=== PATIENT | male | born 1970 | race Caucasian/White ===

== ENCOUNTER 2019-04-19 20:12 | Emergency (ER) | payer MEDICAID ==
[~2019-04-19] VITALS: Ht 170.2 cm; Wt 95.3 kg
[~2019-04-19 20:12] MED LIST: OMEP20EC9 PO; [UNRECOGNIZED DRUG - CODE] PO
[2019-04-19 20:21] VITALS: BP 135/82
--- NOTE | 2019-04-19 20:22 | NUR ---
VISUAL ACUITY TEST, PT L EYE 20/25, PT R EYE 20/25
--- NOTE | 2019-04-19 20:23 | NUR ---
PT AMBULATED TO BED 11.
--- NOTE | 2019-04-19 20:36 | NUR ---
PATIENT PRESENTS TO ED WITH C/O L EYE PAIN X 4 DAYS. PATIENT DENIES ANY DISCHARGE, BUT DOES STATE +BLURRY VISION . PT DENIES N/V/D; SKIN IS PINK/WARM/DRY; AAOX4 WITH EVEN AND STEADY GAIT; LUNGS CLEAR BL; HR EVEN AND REGULAR; PT DENIES ANY FEVER, CP, SOB, OR COUGH AT THIS TIME; PATIENT STATES PAIN OF 7/10 AT THIS TIME; VSS; PATIENT POSITIONED FOR COMFORT; HOB ELEVATED; BEDRAILS UP X2; BED DOWN. ER MD MADE AWARE OF PT STATUS.
--- NOTE | 2019-04-19 20:43 | NUR ---
[facility] BEDSIDE EVALUATING PT
[2019-04-19] MEDS ORDERED: TETRACAINE HCL/PF 0.5% OPTH 4 ML BTL OP ONE (20:50)
--- NOTE | 2019-04-19 21:20 | NUR ---
Patient discharged with v/s stable. Written and verbal after care instructions given and explained. Patient alert, oriented and verbalized understanding of instructions. Ambulatory with steady gait. All questions addressed prior to discharge. ID band removed. Patient advised to follow up with PMD. Rx of PREDNISONE, LARATADINE, PANTANOL given. Patient educated on indication of medication including possible reaction and side effects. Opportunity to ask questions provided and answered.
[2019-04-19 21:21] VITALS: BP 142/78
== END 2019-04-19 21:20 | disposition home or self-care (01) ==
LOC: MED 20:12
DX: H10.13 Acute atopic conjunctivitis, bilateral (principal); J30.2 Other seasonal allergic rhinitis; I10 Essential (primary) hypertension; Z79.899 Other long term (current) drug therapy
CPT/HCPCS: 99283

== ENCOUNTER 2021-03-26 12:40 | Emergency (ER) | payer MEDICAID ==
[~2021-03-26] VITALS: Ht 170.2 cm; Wt 90.4 kg
[~2021-03-26 12:40] MED LIST changes: +[UNRECOGNIZED DRUG - CODE] PO; -[UNRECOGNIZED DRUG - CODE] PO
[2021-03-26 12:42] VITALS: BP 137/78
--- NOTE | 2021-03-26 12:52 | NUR ---
PATIENT AMBULATED TO BED 2.
--- NOTE | 2021-03-26 12:58 | NUR ---
51 Y/O M BIB [facility] FROM HOME, PT PRESENTS TO ED WITH ABD PAIN IN BOTH LOWER QUADRANTS, 07/01. PT DENIES CONSTIPATION, URINARY BURNING OR PAIN AND N/V/D. PT ALSO DENIES FEVER, COUGH, SOB, AND CHEST PAIN. A&OX4 WITH EVEN STEADY GAIT. LUNG BASES CLEAR BILATERALLY, HEART SOUNDS EVEN AND STEADY. PMH: HTN MED: HYDROCHLOROTHIAZIDE, LISINOPRIL NKA
[2021-03-26] MEDS ORDERED: ONDANSETRON 4 MG/2 ML VIAL IVP ONE (13:05)
[2021-03-26] MEDS ORDERED: MORPHINE SULFATE 4 MG/ML SYR IVP ONE (13:05)
[2021-03-26] MEDS ORDERED: NACL 0.9% 1,000 ML IV ONE (13:05)
--- NOTE | 2021-03-26 13:15 | NUR ---
CALLED CT TO COME SUBWAY TRAIN OPERATOR PT. CT NOW AT BEDSIDE.
[2021-03-26 13:34] LABS: BASOPHILS % (AUTO) 0.3 % (0.0-2.0); HEMATOCRIT 43.4 % (36-52); HEMOGLOBIN 14.9 g/dL (12.0-18.0); LYMPHOCYTES # (AUTO) 1.3 K/uL (2.0-11.5); LYMPHOCYTES % (AUTO) 7.8 % (20.5-51.1); MEAN CORPUSCULAR HEMOGLOBIN 33 pg (27-31); MEAN CORPUSCULAR HGB CONC 34 g/dL (33-37); MEAN CORPUSCULAR VOLUME 94.9 fL (80-94); MONOCYTES # (AUTO) 0.9 K/uL (0.8-1.0); MONOCYTES % (AUTO) 5.6 % (1.7-9.3); NEUTROPHILS % (AUTO) 86.3 % (42.2-75.2); PLATELET COUNT (AUTO) 203 K/uL (140-450); RED BLOOD CELL COUNT(AUTO) 4.57 MIL/uL (4.20-6.10); WHITE BLOOD COUNT (AUTO) 16.3 K/uL (4.8-10.8)
[2021-03-26 13:35] LABS: APPEARANCE,URINE CLEAR (CLEAR); BILIRUBIN,URINE NEGATIVE (NEGATIVE); BLOOD, URINE NEGATIVE (NEGATIVE); COLOR,URINE YELLOW (YELLOW); LEUKOCYTE ESTERASE ,URINE NEGATIVE (NEGATIVE); NITRITE, URINE NEGATIVE (NEGATIVE); UGLUCOSE NEGATIVE (NEGATIVE)
[2021-03-26 13:57] LABS: RBC,URINE 0-5 /HPF (0-5); WBC,URINE 0-5 /HPF (0-5)
[2021-03-26] MEDS ORDERED: ACET-8386 PO (14:07)
[2021-03-26] MEDS ORDERED: METR500T1 PO (14:07)
[2021-03-26] MEDS ORDERED: CIPR500T4 PO (14:07)
[2021-03-26 14:11] LABS: ALBUMIN 4.3 g/dL (3.4-5.0); ANION GAP 12.8 (8-16); CARBON DIOXIDE 26.8 mmol/L (21-32); CREATININE 1.1 mg/dL (0.6-1.3); POTASSIUM 3.6 mmol/L (3.5-5.1)
[2021-03-26 14:39] VITALS: BP 137/78
--- NOTE | 2021-03-26 14:39 | NUR ---
Patient discharged with v/s stable. Written and verbal after care instructions given and explained. Patient alert, oriented and verbalized understanding of instructions. Ambulatory with steady gait. All questions addressed prior to discharge. ID band removed. Patient advised to follow up with PMD. Rx of norco 5mg-325mg PO q4-6h prn, cipro 500mg po bid, and flagyl 500mg po tid given. Patient educated on indication of medication including possible reaction and side effects. Opportunity to ask questions provided and answered.
== END 2021-03-26 14:37 | disposition home or self-care (01) ==
LOC: MED 12:40
DX: K57.92 Diverticulitis of intestine, part unspecified, without perforation or abscess without bleeding (principal); I10 Essential (primary) hypertension; Z79.899 Other long term (current) drug therapy
CPT/HCPCS: 36415; 74176; 80053; 81001; 83690; 85025; 96361; 96374; 96375; 99284; J2270; J2405; J7030

== ENCOUNTER 2022-03-12 08:38 | Emergency (ER) | payer MEDICAID ==
[~2022-03-12] VITALS: Ht 170.2 cm; Wt 93.0 kg
[~2022-03-12 08:38] MED LIST changes: +ACET-8386 PO; +CIPR500T4 PO; +METR500T1 PO
[2022-03-12 08:59] VITALS: BP 134/75
--- NOTE | 2022-03-12 09:33 | NUR ---
51/M BIB SELF WITH C/O PAINFUL AND BURRNING URINATION X4 DAYS 05/31, DENIES FEVERS, CHILL, N/V/D. NKA PMH: HTN
[2022-03-12] MEDS ORDERED: IBUP-2213 PO (10:25)
[2022-03-12] MEDS ORDERED: CIPR500T4 PO (10:25)
--- NOTE | 2022-03-12 10:32 | NUR ---
Patient discharged with v/s stable. Written and verbal after care instructions given and explained. Patient alert, oriented and verbalized understanding of instructions. Ambulatory with steady gait. All questions addressed prior to discharge. ID band removed. Patient advised to follow up with PMD. Rx of CIPROFLOXACIN HCI, IBUPROFEN given. Opportunity to ask questions provided and answered.
--- NOTE | 2022-03-12 10:33 | NUR ---
Chart checked and completed. The patient's care was reviewed and supervised by Antoinette Mariano RN.
== END 2022-03-12 10:31 | disposition home or self-care (01) ==
LOC: MED 08:38
DX: N48.89 Other specified disorders of penis (principal); R30.0 Dysuria; I10 Essential (primary) hypertension; Z79.899 Other long term (current) drug therapy
CPT/HCPCS: 81002; 99283

== ENCOUNTER 2022-06-15 18:31 | Inpatient (IN) | payer MEDICAID ==
[~2022-06-15] VITALS: Ht 170.2 cm; Wt 90.3 kg
[~2022-06-15 18:31] MED LIST changes: +IBUP-2213 PO
[2022-06-15 18:50] VITALS: BP 118/81
--- NOTE | 2022-06-15 19:23 | NUR ---
Pt report given to Ekaterina ASIF. Transfer of care at this time.
--- NOTE | 2022-06-15 19:30 | NUR ---
52/M C/O LOWER ABD PAIN AND DIFFICULTY URINATING X3 DAYS, DENIES N/V/D. PMH: HTN NKA
[2022-06-15 19:38] LABS: BASOPHILS % (AUTO) 0.2 % (0.0-2.0); EOSINOPHILS % (AUTO) 0.1 % (0.0-4.0); HEMATOCRIT 41.9 % (36-52); HEMOGLOBIN 14.3 g/dL (12.0-18.0); LYMPHOCYTES # (AUTO) 1.6 K/uL (2.0-11.5); LYMPHOCYTES % (AUTO) 15.1 % (20.5-51.1); MEAN CORPUSCULAR HEMOGLOBIN 32 pg (27-31); MEAN CORPUSCULAR HGB CONC 34 g/dL (33-37); MEAN CORPUSCULAR VOLUME 92.1 fL (80-94); MONOCYTES # (AUTO) 1.1 K/uL (0.8-1.0); NEUTROPHILS # (AUTO) 7.6 K/uL (1.8-7.7); NEUTROPHILS % (AUTO) 73.6 % (42.2-75.2); PLATELET COUNT (AUTO) 194 K/uL (140-450); RED BLOOD CELL COUNT(AUTO) 4.55 MIL/uL (4.20-6.10); RED CELL DISTRIBUTION WIDTH 13.9 % (11.6-13.7); WHITE BLOOD COUNT (AUTO) 10.3 K/uL (4.8-10.8)
[2022-06-15 19:50] LABS: ALBUMIN 3.3 g/dL (3.4-5.0); ANION GAP 16.3 (8-16); CARBON DIOXIDE 23.7 mmol/L (21-32); CREATININE 1.2 mg/dL (0.6-1.3); TOTAL BILIRUBIN 0.6 mg/dL (0.0-1.0)
--- NOTE | 2022-06-15 22:25 | NUR ---
TO CT VIA [facility]
--- NOTE | 2022-06-15 22:35 | NUR ---
RETURNED FROM CT
[2022-06-15] MEDS ORDERED: NACL 0.9% 1,000 ML IV ONE (22:55)
[2022-06-15 23:11] LABS: APPEARANCE,URINE CLEAR (CLEAR); BILIRUBIN,URINE 1+ (NEGATIVE); BLOOD, URINE 3+ (NEGATIVE); COLOR,URINE BROWN (YELLOW); LEUKOCYTE ESTERASE ,URINE NEGATIVE (NEGATIVE); NITRITE, URINE POSITIVE (NEGATIVE); PH,URINE 6.5 (5.0-9.0); UGLUCOSE TRACE (NEGATIVE)
[2022-06-15 23:26] LABS: RBC,URINE TOO NUMEROUS TO COUN /HPF (0-5)
[2022-06-15 23:27] LABS: WBC,URINE 0-5 /HPF (0-5)
[2022-06-15] MEDS ORDERED: MORPHINE SULFATE 4 MG/ML SYR IVP ONE (23:45)
[2022-06-15] MEDS ORDERED: PIPERACILLIN/TAZOBACTAM 4.5 GM in DEXTROSE 5% 100 ML IV ONE (23:45)
[2022-06-15] MEDS ORDERED: VANCOMYCIN 1,000 MG in DEXTROSE 5% 250 ML IV ONE (23:45)
[2022-06-15] MEDS ORDERED: VANCOMYCIN 1,000 MG VIAL ONE (23:59)
[2022-06-16] MEDS ORDERED: PIPERACILLIN/TAZOBACTAM 4.5 GM VIAL IV ONE
[2022-06-16] MEDS ORDERED: KETOROLAC 15 MG/ML VIAL IVP SCH ×2 (01:20→13:00)
[2022-06-16] MEDS ORDERED: MORPHINE SULFATE 4 MG/ML SYR IVP PRN (01:20)
--- NOTE | 2022-06-16 02:00 | NUR ---
RESTING COMFORTABLY. DAVIE SWAB OBTAINED AND SENT TO LAB
[2022-06-16] MEDS: DEXT 5% /NACL 0.9% 1,000 ML IV SCH ×3 (02:58→18:27)
--- NOTE | 2022-06-16 03:11 | NUR ---
TO BED 212B, REPORT GIVEN TO YEFRI RUBIO
--- NOTE | 2022-06-16 03:30 | NUR ---
RECEIVED PATIENT FROM ER NURSE FOR CONTINUITY OF CARE. PT ALERT X 4 LEBANESE SPEAKING. LAC IV G 18 INTACT AND PATENT, NO DISTRESS NOTED
[2022-06-16 04:00] VITALS: BP 117/61
--- NOTE | 2022-06-16 07:30 | NUR ---
RECEIVED REPORT FROM AIRCRAFT POWER PLANT ASSEMBLER NURSE FOR CONTINUITY OF CARE. PATIENT ALERT PASHTO SPEAKING. RESPIRATION EVEN AND NOT LABORED NO SHORTNESS OF BREATH. ON ROOM AIR. IV SITE ON LEFT AC KEN 18 RUNNING D51/2 NS A 120 ML/HOUR. CALL LIGHT WITH IN EASY REACH. COMPLAIN OF 2/10 PAIN LOWER ABDOMEN BUT NO REQUEST FOR PAIN MEDS.
[2022-06-16 08:00] VITALS: BP 112/67
--- NOTE | 2022-06-16 08:00 | NUR ---
REVIEWED AND DISCUSSED PLAN OF CARE WITH PHUC NGUYEN.
[2022-06-16] MEDS ORDERED: ZOLPIDEM 5 MG TAB PO PRN (08:20)
[2022-06-16] MEDS ORDERED: guaiFENesin DM 200/20 MG-10 ML 10 ML UDC PO PRN (08:20)
[2022-06-16] MEDS ORDERED: ACETAMINOPHEN 325 MG TAB PO PRN (08:20)
[2022-06-16] MEDS ORDERED: DOCUSATE SODIUM 100 MG GELCAP PO PRN (08:20)
[2022-06-16] MEDS ORDERED: ONDANSETRON 4 MG/2 ML VIAL IM/IVP PRN (08:20)
[2022-06-16] MEDS ORDERED: HYDROcodone/APAP 7.5/325 MG 1 TAB PO PRN (08:20)
--- NOTE | 2022-06-16 09:02 | NUR ---
PATIENT HAS BEEN SCREENED AND CATEGORIZED LOW NUTRITION RISK. PATIENT WILL BE SEEN WITHIN 7 DAYS OF ADMISSION. 06/22/[address]
[2022-06-16] MEDS: PANTOPRAZOLE 40 MG INJ VIAL IVP SCH (09:20)
[2022-06-16] MEDS: PIPERACILLIN/TAZOBACTAM 3.375 GM in DEXTROSE 5% 50 ML IV SCH ×3 (09:20→18:27)
[2022-06-16 09:23] LABS: ALBUMIN 2.7 g/dL (3.4-5.0); ANION GAP 11.2 (8-16); CARBON DIOXIDE 25.7 mmol/L (21-32); CREATININE 0.8 mg/dL (0.6-1.3); TOTAL BILIRUBIN 0.5 mg/dL (0.0-1.0)
[2022-06-16 09:26] LABS: AMYLASE 77 U/L (25-115); FREE T4 (FREE THYROXINE) 1.47 ng/dL (0.76-1.46); HDL CHOLESTEROL 30 mg/dL (40-60); LDL (CALC) 39 mg/dL (60-100); LIPASE 296 U/L (73-393); MAGNESIUM 1.2 mg/dL (1.8-2.4); PHOSPHORUS 2.4 mg/dL (2.5-4.9); THYROID STIMULATING HORMONE 1.27 uIU/mL (0.34-3.74); TRIGLYCERIDES 102 mg/dL (30-150)
[2022-06-16 10:26] LABS: POTASSIUM 2.9 mmol/L (3.5-5.1)
[2022-06-16 10:29] LABS: PROTHROMBIN TIME 9.9 secs (10.8-13.4)
--- NOTE | 2022-06-16 10:31 | NUR ---
PHARMACY CALLED TO CALL DR. JANG TO VERIFY ORDER FOR TORADOL AND INFORM OF POTASSIUM LEVEL OF 2.9.
--- NOTE | 2022-06-16 10:45 | NUR ---
INFORM PATIENT THAT HE HAS DISCHARGE ORDER AND HE SAID HE WILL CALL HIS TO PICK HIM UP. PATIENT ON STABLE CONDITION DENIES PAIN. Addendum: 06/16/22 at 1527 by Olga Brooks LVN WRONG PATIENT
[2022-06-16] MEDS ORDERED: MAG SULF 2000 MG/WATER PREMIX 50 ML IV SCH (12:00)
[2022-06-16 13:37] LABS: BASOPHILS # (AUTO) 0.1 K/uL (0.00-0.22); BASOPHILS % (AUTO) 1.1 % (0.0-2.0); EOSINOPHILS % (AUTO) 0.3 % (0.0-4.0); HEMATOCRIT 38.5 % (36-52); LYMPHOCYTES # (AUTO) 1.5 K/uL (2.0-11.5); LYMPHOCYTES % (AUTO) 21.7 % (20.5-51.1); MEAN CORPUSCULAR HEMOGLOBIN 31 pg (27-31); MEAN CORPUSCULAR HGB CONC 34 g/dL (33-37); MEAN CORPUSCULAR VOLUME 92.5 fL (80-94); MONOCYTES # (AUTO) 0.9 K/uL (0.8-1.0); MONOCYTES % (AUTO) 12.6 % (1.7-9.3); NEUTROPHILS # (AUTO) 4.6 K/uL (1.8-7.7); NEUTROPHILS % (AUTO) 64.3 % (42.2-75.2); PLATELET COUNT (AUTO) 196 K/uL (140-450); RED BLOOD CELL COUNT(AUTO) 4.16 MIL/uL (4.20-6.10); RED CELL DISTRIBUTION WIDTH 14.1 % (11.6-13.7); WHITE BLOOD COUNT (AUTO) 7.1 K/uL (4.8-10.8)
--- NOTE | 2022-06-16 15:05 | NUR ---
RECEIVED REPORT FROM PATRICK FRIEND. PT IN STABLE CONDITION. A/OX4, BREATHING EVEN REGULAR AND UNLABORED ON RA. SUPRAPUBIC CATHETER IN PLACE, PATENT. CLEAR LIQUID DIET, PT CURRENTLY DENIES PAIN AT THIS TIME.
--- NOTE | 2022-06-16 15:05 | NUR ---
GAVE REPORT TO NURSE MARTIN FOR CONTINUITY OF CARE.
[2022-06-16 16:00] VITALS: BP 121/74
--- NOTE | 2022-06-16 19:36 | NUR ---
ENDORSED PT TO NIGHTSHIFT NURSE RAMIRO FOR CONTINUITY OF CARE. PT IN STABLE CONDITION.
--- NOTE | 2022-06-16 19:37 | NUR ---
RECEIVED PATIENT FROM AM NURSE FOR CONTINUITY OF CARE.PT IS STABLE
[2022-06-16 20:00] VITALS: BP 112/76
--- NOTE | 2022-06-16 21:30 | NUR ---
ALL MEDICATIONS GIVEN AT THIS TIME,NO ADVERES REACTIONS NOTED
[2022-06-16] MEDS: POTASSIUM CHLORIDE 40 MEQ, LIDOCAINE MPF 1% 25 MG in NACL 0.9% 250 ML IV PRN (23:01)
[2022-06-17] MEDS: PIPERACILLIN/TAZOBACTAM 3.375 GM in DEXTROSE 5% 50 ML IV SCH ×5 (00:06→23:54)
--- NOTE | 2022-06-17 01:00 | NUR ---
PATIENT ASLEEP, NO S/SX OF DISTRESS NOTED
[2022-06-17] MEDS: DEXT 5% /NACL 0.9% 1,000 ML IV SCH ×4 (02:20→23:52)
--- NOTE | 2022-06-17 03:00 | NUR ---
PATIENT ASLEEP, BREATHING EVEN AND UNLABORED,NO DISTRESS NOTED
[2022-06-17 04:00] VITALS: BP 114/72
--- NOTE | 2022-06-17 05:00 | NUR ---
POTASSIUM CHLORIDE 40 MEQ INFUSION DONE FOR K 2.9
[2022-06-17 07:08] LABS: T4 (THYROXINE) 9.5 ug/dL (4.5-12.0)
[2022-06-17 07:09] LABS: BASOPHILS % (AUTO) 0.3 % (0.0-2.0); EOSINOPHILS # (AUTO) 0.1 K/uL (0-0.4); EOSINOPHILS % (AUTO) 0.8 % (0.0-4.0); HEMATOCRIT 36.4 % (36-52); HEMOGLOBIN 12.6 g/dL (12.0-18.0); LYMPHOCYTES # (AUTO) 1.3 K/uL (2.0-11.5); LYMPHOCYTES % (AUTO) 19.3 % (20.5-51.1); MEAN CORPUSCULAR HEMOGLOBIN 32 pg (27-31); MEAN CORPUSCULAR HGB CONC 35 g/dL (33-37); MEAN CORPUSCULAR VOLUME 92.3 fL (80-94); MONOCYTES # (AUTO) 0.9 K/uL (0.8-1.0); MONOCYTES % (AUTO) 12.7 % (1.7-9.3); NEUTROPHILS # (AUTO) 4.5 K/uL (1.8-7.7); NEUTROPHILS % (AUTO) 66.9 % (42.2-75.2); PLATELET COUNT (AUTO) 225 K/uL (140-450); RED BLOOD CELL COUNT(AUTO) 3.94 MIL/uL (4.20-6.10); RED CELL DISTRIBUTION WIDTH 13.8 % (11.6-13.7); WHITE BLOOD COUNT (AUTO) 6.8 K/uL (4.8-10.8)
[2022-06-17 07:18] LABS: ANION GAP 10.3 (8-16); CARBON DIOXIDE 25.9 mmol/L (21-32); POTASSIUM 3.2 mmol/L (3.5-5.1)
--- NOTE | 2022-06-17 07:30 | NUR ---
RECEIVED REPORT FROM SPINNING BATH PERSON NURSE FOR CONTINUITY OF CARE. PT IS AWAKE. A%O4, ABLE TO COMMUNICATE NEEDS. RESPIRATION EVEN AND UNLABORED ON RA. NO DISTRESS NOTED. SKIN IS INTACT, WARM AND DRY TO TOUCH. IV SITE AT LAC 18G, INFUSING D5NS AT 120 ML/HR. SUPRAPUBIC CATHETER INTACT. CALL LIGHT WITHIN REACH. SAFETY PRECAUTIONS IN PLACE. WILL CONTINUE TO MONITOR.
[2022-06-17 08:00] VITALS: BP 114/69
[2022-06-17] MEDS: PANTOPRAZOLE 40 MG INJ VIAL IVP SCH (09:48)
[2022-06-17] MEDS: POTASSIUM CHLORIDE 40 MEQ, LIDOCAINE MPF 1% 25 MG in NACL 0.9% 250 ML IV PRN (09:48)
--- NOTE | 2022-06-17 11:41 | NUR ---
IV PROTONIX AND IV POTASSIUM FOR K-3.2 ADMINISTERED BY YEFRI MENESES.
--- NOTE | 2022-06-17 11:44 | NUR ---
IV ABX ADMINISTERED BY YEFRI MENESES.
--- NOTE | 2022-06-17 13:27 | NUR ---
DID ROUNDS: PT JUST FINISHED EATING LUNCH. NO COPLAINTS OF ABD PAIN. NO N & V. LEFT PT SITTING IN BED. NO DISTRESS NOTED. WITH FAMILY MEMBER AT BEDSIDE.
--- NOTE | 2022-06-17 15:16 | NUR ---
PT COMFORTABLY LYING IN BED. NO DISTRESS NOTED. RESPIRATIONS EVEN AND UNLABORED. DENIES PAIN. CALL LIGHT WITHIN REACH. SAFETY PRECAUTIONS IN PLACE.
[2022-06-17 16:00] VITALS: BP 116/71
--- NOTE | 2022-06-17 17:40 | NUR ---
SCHEDULED IV ABX ADMINISTERED BY YEFRI MENESES. NO ADVERSE REACTION NOTED. WILL CONTINUE TO MONITOR.
--- NOTE | 2022-06-17 19:20 | NUR ---
ENDORSED PT TO GENERAL PASSENGER AGENT NURSE FOR CONTINUITY OF CARE. ALL NEEDS MET THROUGHOUT SHIFT. PT IS STABLE.
--- NOTE | 2022-06-17 19:30 | NUR ---
RECEIVED REPORT FROM DAY SHIFT NURSE FOR CONTINUITY OF CARE. PATIENT WAS SITTING UP IN BED AND WAS A&OX4. PATIENT'S IV SITE IS L AC 18G RUNNING D5/NS 120/HR. PATIENT HAS SUPRAPUBIC CATHETER IN PLACE. PATIENT IS ON ROOM AIR, BREATHING IS NORMAL WITH SYMMETRICAL RISE AND FALL OF CHEST. BED IS IN LOWEST POSITION WITH WHEELS LOCKED AND CALL LIGHT IN PLACE. WILL CONTINUE TO OBSERVE PATIENT.
[2022-06-17 20:00] VITALS: BP 112/70
--- NOTE | 2022-06-17 20:00 | NUR ---
OBTAINED PATIENT'S 2000 VITALS WHICH WERE: TEMP 97.9, HR 97, BP 112/70, RR 18, O2 98. PATIENT WAS SITTING UP IN BED AND WAS COOPERATIVE WITH THE TAKING OF VITALS. IV RUNNING D5/NS @ 120ML/HR. BED WAS IN LOWEST POSITION, WHEELS LOCKED AND CALL LIGHT WAS WITHIN REACH. WILL CONTINUE TO OBSERVE.
--- NOTE | 2022-06-17 22:00 | NUR ---
LOOKED IN ON PATIENT. PATIENT WAS SLEEPING COMFORTABLY WITH IV RUNNING AT 120ML/HR. BREATHING WAS NORMAL WITH SYMMETRICAL RISE AND FALL OF CHEST. WILL CONTINUE TO OBSERVE PATIENT.
--- NOTE | 2022-06-18 | NUR ---
NAGI FORD D5/NS 0.9 RUNNING AT 120ML/HR & HUNG 0000 IVPB. PATIENT WAS SLEEPING UNDER COVERS. BREATHING WAS NORMAL WITH SYMMETRICAL RISE AND FALL OF CHEST. BED WAS IN LOWEST POSITION, CALL LIGHT WAS WITHIN REACH. WILL CONTINUE TO OBSERVE PATIENT.
--- NOTE | 2022-06-18 02:30 | NUR ---
LOOKED IN ON PATIENT. PATIENT WAS SLEEPING. IVF WAS RUNNING 120ML/HR. BREATHING WAS NORMAL WITH SYMMETRICAL RISE AND FALL OF CHEST. BED WAS IN LOWEST POSITION, WHEELS LOCKED, CALL LIGHT IN PLACE. WILL CONTINUE TO OBSERVE.
[2022-06-18 04:00] VITALS: BP 118/75
--- NOTE | 2022-06-18 04:00 | NUR ---
OBTAINED 0400 VITALS. VITALS WERE: TEMP 97.5, HR 100, BP 118/75, RR 18, O2 97. PATIENT WAS SLEEPING UPON ENTERING ROOM LYING SUPINE. PATIENT'S BREATHING WAS NORMAL WITH SYMMETRICAL RISE AND FALL OF CHEST. IVF STILL RUNNING 120ML/HR. WILL CONTINUE TO OBSERVE PATIENT.
[2022-06-18] MEDS: PIPERACILLIN/TAZOBACTAM 3.375 GM in DEXTROSE 5% 50 ML IV SCH ×2 (05:53→12:24)
--- NOTE | 2022-06-18 06:00 | NUR ---
HUNG 0600 IVPB. PATIENT WAS SLEEPING UPON ENTERING ROOM. BREATHING WAS NORMAL WITH SYMMETRICAL RISE AND FALL OF CHEST. BED WAS IN LOWEST POSITION, WHEELS LOCKED AND CALL LIGHT WITHIN REACH. WILL CONTINUE TO OBSERVE PATIENT.
[2022-06-18 07:10] LABS: BASOPHILS % (AUTO) 0.4 % (0.0-2.0); EOSINOPHILS # (AUTO) 0.1 K/uL (0-0.4); EOSINOPHILS % (AUTO) 2.2 % (0.0-4.0); HEMATOCRIT 35.6 % (36-52); HEMOGLOBIN 12.1 g/dL (12.0-18.0); LYMPHOCYTES # (AUTO) 1.6 K/uL (2.0-11.5); LYMPHOCYTES % (AUTO) 28.1 % (20.5-51.1); MEAN CORPUSCULAR HEMOGLOBIN 31 pg (27-31); MEAN CORPUSCULAR HGB CONC 34 g/dL (33-37); MEAN CORPUSCULAR VOLUME 91.9 fL (80-94); MONOCYTES # (AUTO) 0.8 K/uL (0.8-1.0); MONOCYTES % (AUTO) 14.1 % (1.7-9.3); NEUTROPHILS # (AUTO) 3.1 K/uL (1.8-7.7); NEUTROPHILS % (AUTO) 55.2 % (42.2-75.2); PLATELET COUNT (AUTO) 253 K/uL (140-450); RED BLOOD CELL COUNT(AUTO) 3.88 MIL/uL (4.20-6.10); RED CELL DISTRIBUTION WIDTH 13.8 % (11.6-13.7); WHITE BLOOD COUNT (AUTO) 5.6 K/uL (4.8-10.8)
--- NOTE | 2022-06-18 07:15 | NUR ---
RECEIVED REPORT FROM CMV DRIVER NURSE FOR CONTINUITY OF CARE. PT IS AWAKE. RESPIRATIONS EVEN AND UNLABORED ON RA. NO DISTRESS NOTED. A&O4, ABLE TO COMMUNICATE NEEDS. SKIN IS INTACT, WARM AND DRY TO TOUCH. IV SITE AT LAC 18G, INFUSING D5NS AT 120ML/HR. PT WITH SUPRAPUBIC CATHETER, INTACT. CALL LIGHT WITHIN REACH. SAFETY PRECAUTIONS IN PLACE. WILL CONTINUE TO MONITOR.
--- NOTE | 2022-06-18 07:20 | NUR ---
EMPTIED PATIENT'S CATHETER BAG. 900 ML PRESENT. PATIENT THEN WENT INTO BATHROOM FOR BM.
--- NOTE | 2022-06-18 07:30 | NUR ---
ENDORSED TO DAY SHIFT NURSE GILMA FOR CONTINUITY OF CARE. PATIENT IS STABLE.
[2022-06-18 08:00] VITALS: BP 124/77
[2022-06-18] MEDS: PANTOPRAZOLE 40 MG INJ VIAL IVP SCH (08:36)
--- NOTE | 2022-06-18 08:40 | NUR ---
SCHEDULED IV PROTONIX ADMINISTERED BY YEFRI MARTINEZ. WILL CONTINUE TO MONITOR.
[2022-06-18 11:50] VITALS: BP 124/77
[2022-06-18] MEDS: DEXT 5% /NACL 0.9% 1,000 ML IV SCH (11:50)
[2022-06-18 12:11] LABS: ANION GAP 11.9 (8-16); CARBON DIOXIDE 22.3 mmol/L (21-32); CREATININE 0.9 mg/dL (0.6-1.3); POTASSIUM 3.2 mmol/L (3.5-5.1)
[2022-06-18] MEDS ORDERED: PANT40EC PO (12:20)
[2022-06-18] MEDS ORDERED: DOCU-299 PO (12:20)
[2022-06-18] MEDS ORDERED: AMOX-1230 PO (12:20)
--- NOTE | 2022-06-18 12:26 | NUR ---
SCHEDULED IV ZOSYN ADMINISTERED BY YEFRI MARTINEZ. NO ADVERSE REACTION NOTED. WILL CONTINUE TO MONITOR.
[2022-06-18] MEDS ORDERED: MAGNESIUM OXIDE 400 MG TAB PO SCH (13:07)
--- NOTE | 2022-06-18 13:46 | NUR ---
ADMINISTERED DRS ORDER FOR POTASSIUM AND MG. PT TEACHING ABOUT MEDS GIVEN. PT VERBALIZED UNDERSTANDING.
[2022-06-18] MEDS ORDERED: POTASSIUM CHLORIDE 10 MEQ TABER PO SCH (14:40)
--- NOTE | 2022-06-18 15:00 | NUR ---
PT DC HOME. PT WHEELED BY HOSP STAFF TO THE FRONT LOBBY VIA WHEELCHAIR. DC PAPERS DISCUSSED WITH THE PT WITH AT BEDSIDE. PT REQUESTED HIS NIECE CASSANDRA MON BE ON THE CP TO HEAR AND TRANSLATE. PT REFUSED TO USE THE HOSPITAL JAVA TECHNICAL MANAGER. DR WILSON, PT NURSE AND NURSE NIRU AT BEDSIDE, DISCUSSED WITH THE PT THE DC ORDERS AND CLARIFIED THE IMPORTANCE OF HIM LEAVING WITH TOMPKINS CATHETER IN PLACE. PT VERBALIZED UNDERSTANDING. PT LEFT WITH TOMPKINS CATHETER IN PLACE MD ORDERED. REMOVED IV CATHETER INTACT. REMOVED ID WRIST BAND. ALL BELONGINGS TAKEN UPON DC. PT IS STABLE.
== END 2022-06-18 15:00 | disposition home or self-care (01) | DRG 244 ==
LOC: MED 18:31 → MMU 06-16 01:26 → MTU 06-16 04:50
PROVIDERS: ADMIT Family Medicine; ATTEND Family Medicine
PROC: 0T9B7ZZ Drainage of Bladder, Via Natural or Artificial Opening (ICD-10-PCS; principal; 2022-06-16)
DX: K57.20 Diverticulitis of large intestine with perforation and abscess without bleeding (principal); E43 Unspecified severe protein-calorie malnutrition; K76.0 Fatty (change of) liver, not elsewhere classified; E83.39 Other disorders of phosphorus metabolism; E86.0 Dehydration; N39.0 Urinary tract infection, site not specified; E11.65 Type 2 diabetes mellitus with hyperglycemia; E87.6 Hypokalemia; Z20.822 Contact with and (suspected) exposure to COVID-19; E83.42 Hypomagnesemia; Z79.891 Long term (current) use of opiate analgesic; Z79.1 Long term (current) use of non-steroidal anti-inflammatories (NSAID); Z68.31 Body mass index [BMI] 31.0-31.9, adult
CPT/HCPCS: 36415; 71045; 80048; 80053; 81001; 82150; 83036; 83605; 83690; 83735; 83880; 84100; 84436; 84439; 84443; 84479; 84484; 85025; 85610; 85730; 87040; 87081; 96361; 96365; 96367; 96375; 99285; C9113; J2001; J2270; J2543; J3370; J3475; J3480; J7030; J7060; Q0092; Q9967

== ENCOUNTER 2022-11-02 15:41 | Emergency (ER) | payer MEDICAID ==
[~2022-11-02] VITALS: Ht 167.6 cm; Wt 86.6 kg
[~2022-11-02 15:41] MED LIST changes: -ACET-8386 PO; +ACET-8905 PO; +AMOX-1230 PO; -CIPR500T4 PO; +DOCU-299 PO; -METR500T1 PO; -OMEP20EC9 PO; +PANT40EC PO
[2022-11-02 16:03] VITALS: BP 130/75
[2022-11-02] MEDS ORDERED: KETOROLAC 30 MG/ML VIAL IM ONE (16:45)
[2022-11-02] MEDS ORDERED: KETOROLAC 30 MG/ML VIAL ONE ×2 (19:22→19:36)
--- NOTE | 2022-11-02 19:34 | NUR ---
TO BED 12
--- NOTE | 2022-11-02 19:40 | NUR ---
MEDICATED PER ORDERS. TOLERATED WELL. NADR
[2022-11-02] MEDS ORDERED: ACET-10509 PO (19:56)
[2022-11-02] MEDS ORDERED: DICL100G31 TP (19:56)
--- NOTE | 2022-11-02 20:40 | NUR ---
Written and verbal after care instructions given and explained. Patient alert, oriented and verbalized understanding of instructions. Ambulatory with steady gait. All questions addressed prior to discharge. ID band removed. Patient advised to follow up with PMD. Rx of ACETAMNOPHEN AND DICLOFENAC SODIUM given. Patient educated on indication of medication including possible reaction and side effects. Opportunity to ask questions provided and answered.
== END 2022-11-02 20:40 | disposition home or self-care (01) ==
LOC: MED 15:41
DX: M25.511 Pain in right shoulder (principal); Z79.899 Other long term (current) drug therapy
CPT/HCPCS: 73030; 96372; 99283; J1885